=== PATIENT | male | born 1970 | race Caucasian/White ===

== ENCOUNTER 2021-03-17 03:46 | Emergency (ER) | payer OTHER ==
[2021-03-17 04:01] VITALS: BP 145/84; PULSE 74; TEMP 98.4; BMI 42.0
[2021-03-17 05:04] LABS: BASO % 0.8 % (0-2.0); EOS % 0.5 % (0-4.5); HEMATOCRIT 49.9 % (35.4-49); HEMOGLOBIN 17.5 GM/dL (11.7-16.9); LYMPH % 20.1 % (8-40); MCH 31.5 pg (25.7-33.7); MEAN CELL VOLUME 89.9 fl (80-96); MEAN PLT VOLUME 7.9 fl (7.5-11.1); MONO % 8.7 % (3.8-10.2); NEUT % 69.9 % (42.8-82.8); PLATELET COUNT 225 K/MM3 (134-434); RBC 5.56 M/mm3 (4.00-5.60)
[2021-03-17 05:21] LABS: CHLORIDE 106 mmol/L (98-107); SODIUM 138 mmol/L (136-145)
[2021-03-17 05:23] LABS: CALCIUM 9.7 mg/dL (8.5-10.1)
[2021-03-17 05:24] LABS: ALBUMIN 4.2 g/dl (3.4-5.0); ANION GAP 6 MMOL/L (8-16); BLOOD UREA NITROGEN 11.9 mg/dL (7-18); CO2 26 mmol/L (21-32); GLUCOSE,RANDOM 102 mg/dL (74-106)
[2021-03-17 05:27] LABS: CREATININE 1.1 mg/dL (0.55-1.3); SGOT/AST 58 U/L (15-37); SGPT/ALT 83 U/L (13-61)
[2021-03-17 05:29] LABS: BILIRUBIN,TOTAL 0.4 mg/dL (0.2-1); TOT PROT 8.3 g/dl (6.4-8.2)
[2021-03-17 05:30] LABS: ALK PHOS 60 U/L (45-117)
[2021-03-17] MEDS ORDERED: LACTATED RINGERS SOLUTION 1000 ML INFUS.BAG IV ONE (05:38)
[2021-03-17 07:10] LABS: PROTHROMBIN TIME (PATIENT) 12.1 SEC (9.7-13.0)
== END 2021-03-17 06:55 | disposition home or self-care (01) ==
LOC: JER 03:46
DX: R42 Dizziness and giddiness (principal); E86.0 Dehydration; R94.5 Abnormal results of liver function studies
CPT/HCPCS: 36415; 71046-TC-FY; 80053; 83880; 84484; 85025; 85610; 85730; 93005; 93010; 99284-25